=== PATIENT | female | born 1945 | race Caucasian/White ===

== ENCOUNTER 2019-01-22 06:20 | Observation (INO) ==
[2019-01-22] MEDS ORDERED: Clindamycin 900 MG/50 ML 900 MG/50 ML IV.SOLN IVPB ONE (06:54)
[2019-01-22] MEDS ORDERED: Ringers Solution, Lactated 1,000 ML IVC SCH ×2 (07:00→12:19)
[2019-01-22] MEDS ORDERED: *HR* Propofol 200 MG/20 ML VIAL IVP ONE (07:04)
[2019-01-22] MEDS ORDERED: Lidocaine -MPF 2% 2 ML VIAL ONE (07:04)
[2019-01-22] MEDS ORDERED: *HR* Midazolam HCl 2 MG/2 ML VIAL ONE (07:04)
[2019-01-22] MEDS ORDERED: *HR* Rocuronium Bromide 50 MG/5 ML VIAL ONE (07:04)
[2019-01-22] MEDS ORDERED: *HR* Succinylcholine 200 MG/10 ML VIAL IVP ONE (07:04)
[2019-01-22] MEDS ORDERED: Dexamethasone 4 MG/ML VIAL ONE (07:04)
[2019-01-22] MEDS ORDERED: Lidocaine HCL 4 ML Topical Solution (Laryng-O-Jet Kit Sterile Pak) TP ONE (07:04)
[2019-01-22] MEDS ORDERED: *HR* FentaNYL (PF) 100 MCG/2 ML VIAL ONE (07:04)
[2019-01-22] MEDS ORDERED: Ondansetron 4 MG/2 ML VIAL ONE (07:04)
[2019-01-22] MEDS ORDERED: *HR* Promethazine 25 MG/ML VIAL IVP PRN (07:17)
[2019-01-22] MEDS ORDERED: Ondansetron 4 MG/2 ML VIAL IVP ONE (07:17)
[2019-01-22] MEDS ORDERED: Scopolamine Patch 1.5 MG PATCH.TD72 TD ONE (07:17)
[2019-01-22] MEDS ORDERED: *HR* OxyCODONE Immed Rel 5 MG TABLET PO PRN (07:17)
[2019-01-22] MEDS ORDERED: *HR* Remifentanil 1 MG VIAL IVP ONE (07:20)
[2019-01-22] MEDS ORDERED: *HR* Phenylephrine 10 MG/ML VIAL ONE (07:23)
[2019-01-22] MEDS ORDERED: Bacitracin 50,000 UNIT, Polymyxin B Sulfate 500,000 UNIT, Sodium Chloride IRRigation 1,... IR ONE (07:45)
[2019-01-22] MEDS ORDERED: EPHEDrine 50 MG/ML VIAL ONE (08:14)
[2019-01-22] MEDS ORDERED: *HR* HYDROMORPHONE 2 MG/ML VIAL ONE (09:39)
[2019-01-22] MEDS: *HR* HYDROmorphone (PF) 1 MG/ML SYRINGE IVP PRN ×4 (09:52→10:34)
[2019-01-22] MEDS ORDERED: Gabapentin 300 MG CAPSULE PO ONE (10:53)
[2019-01-22] MEDS ORDERED: *HR* LORazepam 2 MG/ML VIAL IVP ONE (10:54)
[2019-01-22] MEDS ORDERED: tiZANidine 4 MG TABLET PO ONE (10:54)
[2019-01-22] MEDS ORDERED: *HR* LORazepam 2 MG/ML VIAL ONE (10:58)
[2019-01-22] MEDS ORDERED: *HR* HYDROcodone/Acet 5/325 mg TABLET PO PRN (12:19)
[2019-01-22] MEDS ORDERED: IBUPROFEN PO PRN (12:19)
[2019-01-22] MEDS ORDERED: [UNRECOGNIZED DRUG - OTHER] PO PRN (12:19)
[2019-01-22] MEDS ORDERED: Ibuprofen 400 MG TABLET PO PRN (12:19)
[2019-01-22] MEDS ORDERED: HYDROCODONE PO PRN (12:19)
[2019-01-22] MEDS ORDERED: Gabapentin 300 MG CAPSULE PO SCH (12:19)
[2019-01-22] MEDS ORDERED: Naloxone 0.4 MG/ML INJ IVP PRN (12:19)
[2019-01-22] MEDS: Clindamycin 600 MG/50 ML 600 MG/50 ML IV.SOLN IVPB SCH ×2 (16:11→23:58)
[2019-01-22] MEDS: Gabapentin 300 MG CAPSULE PO SCH (17:39)
[2019-01-22] MEDS: HYDROcodone BIT/Homatropine 5 MG TABLET PO PRN ×2 (17:39→22:39)
[2019-01-22] MEDS: tiZANidine 4 MG TABLET PO PRN (18:34)
[2019-01-22] MEDS: *HR* OxyCODONE Immed Rel 5 MG TABLET PO PRN (20:05)
[2019-01-22] MEDS: traZODone 50 MG TABLET PO SCH (20:05)
[2019-01-23] MEDS: *HR* OxyCODONE Immed Rel 5 MG TABLET PO PRN ×3 (00:03→11:10)
[2019-01-23] MEDS: HYDROcodone BIT/Homatropine 5 MG TABLET PO PRN ×4 (03:31→20:50)
[2019-01-23] MEDS: FLUoxetine 20 MG CAPSULE PO SCH ×2 (08:36→08:37)
[2019-01-23] MEDS: tiZANidine 4 MG TABLET PO PRN (08:36)
[2019-01-23] MEDS: Multivit/Ca/Min/Fe/FA 1 TAB TABLET PO SCH (08:37)
[2019-01-23] MEDS: Ascorbic Acid 500 MG TABLET PO SCH (08:37)
[2019-01-23] MEDS: Gabapentin 300 MG CAPSULE PO SCH ×2 (08:37→11:11)
[2019-01-23] MEDS ORDERED: NON-FORMULARY MEDICATION 1 EACH EACH (Ubidecarenone [Co Q-10] 100 MG) PO SCH (09:00)
[2019-01-23] MEDS ORDERED: NON-FORMULARY MEDICATION 1 EACH EACH (Turmeric Root Extract [Turmeric] 500 MG) PO SCH (09:00)
[2019-01-23] MEDS ORDERED: 0.9 % Sodium Chloride 500 ML IVC ONE (11:52)
[2019-01-23 12:22] LABS: Basophils % 0.3 %; Eosinophils % 0.1 %; Hematocrit 32.7 % (35.3-44.9); Hemoglobin 11.2 g/dL (11.5-15.4); Immature Granulocytes % 0.3 % (0-4); Lymphocytes % 25.3 %; Mean Corpuscular HGB Conc 34.3 g/dL (31.6-35.5); Mean Corpuscular Hemoglobin 31.7 pg (28.0-33.3); Mean Corpuscular Volume 92.6 fL (83.0-100.0); Mean Platelet Volume 10.6 fL (9.4-12.4); Monocytes % 8.6 %; Neutrophils # 7.7 K/mcL (1.6-8.9); Platelet Count 300 K/mcL (140-400); Red Blood Count 3.53 M/mcL (3.82-4.97); Red Cell Distribution Width 13.4 % (11.5-14.5); Segmented Neutrophils % 65.4 %
[2019-01-23 12:24] LABS: White Blood Count 11.7 K/mcL (4.3-11.1)
[2019-01-23 12:42] LABS: Albumin 3.6 g/dL (3.5-5.7); Albumin/Globulin Ratio 1.3 (1.1-2.2); Bilirubin,Total 0.5 mg/dL (0.3-1.0); Calcium 9.1 mg/dL (8.6-10.3); Globulin 2.8 g/dL (2.4-3.5); Potassium 3.5 mEq/L (3.5-5.1); Total Protein 6.4 g/dL (6.4-8.9)
[2019-01-23] MEDS ORDERED: Ringers Solution, Lactated 1,000 ML IVC ONE (14:17)
[2019-01-23] MEDS: Loratadine 10 MG TABLET PO SCH (15:02)
[2019-01-24] MEDS: HYDROcodone BIT/Homatropine 5 MG TABLET PO PRN ×4 (00:48→20:48)
[2019-01-24] MEDS: *HR* OxyCODONE Immed Rel 5 MG TABLET PO PRN ×4 (01:53→17:57)
[2019-01-24] MEDS: Ondansetron 4 MG/2 ML VIAL IVP PRN ×3 (07:18→21:07)
[2019-01-24 07:45] LABS: Basophils % 0.3 %; Eosinophils # 0.1 K/mcL (0.0-0.6); Eosinophils % 0.3 %; Hematocrit 40.1 % (35.3-44.9); Immature Granulocytes % 0.5 % (0-4); Lymphocytes # 2.7 K/mcL (0.6-4.6); Lymphocytes % 17.9 %; Mean Corpuscular HGB Conc 34.2 g/dL (31.6-35.5); Mean Corpuscular Hemoglobin 31.1 pg (28.0-33.3); Mean Corpuscular Volume 90.9 fL (83.0-100.0); Mean Platelet Volume 10.7 fL (9.4-12.4); Monocytes # 1.1 K/mcL (0.0-1.3); Monocytes % 7.3 %; Platelet Count 369 K/mcL (140-400); Red Blood Count 4.41 M/mcL (3.82-4.97); Red Cell Distribution Width 13.4 % (11.5-14.5); Segmented Neutrophils % 73.7 %; White Blood Count 14.9 K/mcL (4.3-11.1)
[2019-01-24 08:02] LABS: Hemoglobin 13.7 g/dL (11.5-15.4)
[2019-01-24 08:13] LABS: BUN/Creatinine Ratio 13 (6-26); Blood Urea Nitrogen 10 mg/dL (8-23); Calcium 9.7 mg/dL (8.6-10.3); Carbon Dioxide 27 mEq/L (23-29); Chloride 94 mEq/L (98-107); Glucose 173 mg/dL (70-105); Osmolality,Calculated 281 (280-300); Potassium 3.8 mEq/L (3.5-5.1); Sodium 134 mEq/L (136-145); eGFR For African Americans > 60 (> 60); eGFR For Non-African Americans > 60 (> 60)
[2019-01-24] MEDS: FLUoxetine 20 MG CAPSULE PO SCH ×2 (09:44→09:45)
[2019-01-24] MEDS: Loratadine 10 MG TABLET PO SCH (09:44)
[2019-01-24] MEDS: Multivit/Ca/Min/Fe/FA 1 TAB TABLET PO SCH (09:45)
[2019-01-24] MEDS: Ascorbic Acid 500 MG TABLET PO SCH (09:46)
[2019-01-24] MEDS: amLODIPine 5 MG TABLET PO SCH (13:48)
[2019-01-24] MEDS: Gabapentin 300 MG CAPSULE PO SCH ×2 (17:52→17:53)
[2019-01-24 19:22] LABS: Bacteria,Urine None Seen per hpf (None-Few); Bilirubin,Urine Negative (Negative); Blood,Urine Negative (Negative); Clarity,Urine Clear (Clear); Color,Urine Yellow (Yellow); Glucose,Urine (UA) Normal (Normal); Hyaline Casts,Urine None Seen per lpf (None-Few); Ketones,Urine 15 mg/dL (Negative); Leukocyte Esterase,Urine Negative (Negative); Nitrite,Urine Negative (Negative); Protein,Urine >=300 mg/dL (Neg-Trace); Squamous Epithelial Cell,Urine Many per lpf (None-Few); Urobilinogen,Urine Normal (Normal)
[2019-01-24] MEDS: traZODone 50 MG TABLET PO SCH (21:07)
[2019-01-25] MEDS: *HR* OxyCODONE Immed Rel 5 MG TABLET PO PRN ×5 (00:08→20:20)
[2019-01-25] MEDS: HYDROcodone BIT/Homatropine 5 MG TABLET PO PRN ×2 (02:05→22:34)
[2019-01-25] MEDS: tiZANidine 4 MG TABLET PO PRN ×2 (04:17→18:39)
[2019-01-25] MEDS ORDERED: 0.9 % Sodium Chloride 500 ML ONE (07:04)
[2019-01-25] MEDS ORDERED: 0.9 % Sodium Chloride 500 ML IVC PRN (07:07)
[2019-01-25] MEDS: Gabapentin 300 MG CAPSULE PO SCH (10:00)
[2019-01-25 10:03] LABS: Calcium 9.5 mg/dL (8.6-10.3); Potassium 4.2 mEq/L (3.5-5.1)
[2019-01-25] MEDS: Ondansetron 4 MG/2 ML VIAL IVP PRN (10:22)
[2019-01-25] MEDS: Multivit/Ca/Min/Fe/FA 1 TAB TABLET PO SCH (10:30)
[2019-01-25] MEDS: Loratadine 10 MG TABLET PO SCH (10:30)
[2019-01-25] MEDS: Ascorbic Acid 500 MG TABLET PO SCH (10:30)
[2019-01-25] MEDS: FLUoxetine 20 MG CAPSULE PO SCH ×2 (10:30)
[2019-01-25 10:38] LABS: Basophils % 0.2 %; Hemoglobin 13.7 g/dL (11.5-15.4); Immature Granulocytes % 0.4 % (0-4); Lymphocytes # 1.7 K/mcL (0.6-4.6); Lymphocytes % 13.3 %; Mean Corpuscular HGB Conc 34.3 g/dL (31.6-35.5); Mean Corpuscular Hemoglobin 31.6 pg (28.0-33.3); Mean Platelet Volume 10.6 fL (9.4-12.4); Monocytes # 1.2 K/mcL (0.0-1.3); Monocytes % 9.6 %; Neutrophils # 9.6 K/mcL (1.6-8.9); Platelet Count 369 K/mcL (140-400); Red Blood Count 4.34 M/mcL (3.82-4.97); Red Cell Distribution Width 13.8 % (11.5-14.5); Segmented Neutrophils % 76.5 %; White Blood Count 12.6 K/mcL (4.3-11.1)
[2019-01-25 10:40] LABS: Mean Corpuscular Volume 92.2 fL (83.0-100.0)
[2019-01-25 11:30] LABS: Thyroid Stimulating Hormone 2.709 mcIU/mL (0.340-5.600)
[2019-01-25 12:02] LABS: Estimated Average Glucose 123 mg/dl
[2019-01-25 16:56] LABS: Complement C3 199 mg/dL (87-200)
[2019-01-25 17:15] LABS: Protein/Creatinine Ratio,Urine 1.7 mg/mg (0.00-0.20); Sodium, Urine 21.8 mEq/L
[2019-01-25] MEDS: traZODone 50 MG TABLET PO SCH (20:20)
[2019-01-25] MEDS ORDERED: levoFLOXacin 750 MG/150 ML 750 MG/150 ML BAG IVPB SCH (23:45)
[2019-01-26] MEDS: *HR* OxyCODONE Immed Rel 5 MG TABLET PO PRN ×4 (00:18→14:54)
[2019-01-26 02:36] LABS: Hematocrit 37.9 % (35.3-44.9); Mean Corpuscular HGB Conc 34.3 g/dL (31.6-35.5); Mean Corpuscular Hemoglobin 31.5 pg (28.0-33.3); Mean Corpuscular Volume 91.8 fL (83.0-100.0); Mean Platelet Volume 10.8 fL (9.4-12.4); Platelet Count 357 K/mcL (140-400); Red Blood Count 4.13 M/mcL (3.82-4.97); Red Cell Distribution Width 13.5 % (11.5-14.5)
[2019-01-26 02:58] LABS: BUN/Creatinine Ratio 22 (6-26); Blood Urea Nitrogen 22 mg/dL (8-23); Calcium 9.7 mg/dL (8.6-10.3); Carbon Dioxide 26 mEq/L (23-29); Chloride 98 mEq/L (98-107); Glucose 141 mg/dL (70-105); Osmolality,Calculated 286 (280-300); Potassium 3.6 mEq/L (3.5-5.1); Sodium 135 mEq/L (136-145); eGFR For African Americans > 60 (> 60); eGFR For Non-African Americans 54 (> 60)
[2019-01-26] MEDS: HYDROcodone BIT/Homatropine 5 MG TABLET PO PRN (03:22)
[2019-01-26 07:17] LABS: Basophils % 0.2 %; Eosinophils # 0.1 K/mcL (0.0-0.6); Eosinophils % 1.2 %; Hemoglobin 13.6 g/dL (11.5-15.4); Immature Granulocytes % 0.4 % (0-4); Lymphocytes # 2.4 K/mcL (0.6-4.6); Lymphocytes % 23.2 %; Mean Corpuscular Hemoglobin 31.3 pg (28.0-33.3); Mean Corpuscular Volume 92.2 fL (83.0-100.0); Mean Platelet Volume 10.5 fL (9.4-12.4); Monocytes # 0.9 K/mcL (0.0-1.3); Monocytes % 8.4 %; Neutrophils # 6.9 K/mcL (1.6-8.9); Platelet Count 378 K/mcL (140-400); Red Blood Count 4.34 M/mcL (3.82-4.97); Red Cell Distribution Width 13.6 % (11.5-14.5); Segmented Neutrophils % 66.6 %; White Blood Count 10.3 K/mcL (4.3-11.1)
[2019-01-26 07:39] LABS: BUN/Creatinine Ratio 23 (6-26); Blood Urea Nitrogen 23 mg/dL (8-23); Carbon Dioxide 27 mEq/L (23-29); Chloride 96 mEq/L (98-107); Glucose 158 mg/dL (70-105); Osmolality,Calculated 293 (280-300); Potassium 3.8 mEq/L (3.5-5.1); Sodium 138 mEq/L (136-145); eGFR For African Americans > 60 (> 60); eGFR For Non-African Americans 56 (> 60)
[2019-01-26] MEDS: Loratadine 10 MG TABLET PO SCH (08:34)
[2019-01-26] MEDS: Multivit/Ca/Min/Fe/FA 1 TAB TABLET PO SCH (08:34)
[2019-01-26] MEDS: Ascorbic Acid 500 MG TABLET PO SCH (08:35)
[2019-01-26] MEDS: FLUoxetine 20 MG CAPSULE PO SCH ×2 (08:35)
[2019-01-26 16:19] VITALS: BP 163/84
[2019-01-28 11:42] LABS: ANA IgG by ELISA NONE DETECTED (None Detected)
[2019-01-28 20:56] LABS: Urine Collection Volume RANDOM mL
[2019-01-29 13:32] LABS: Alpha 2 Globulin (PEP) 0.99 g/dL (0.48-1.05); Beta Globulin (PEP) 0.87 g/dL (0.48-1.10)
[2019-01-29 13:34] LABS: IFE Reflexed NOT DONE
[2019-01-30 09:59] LABS: Metanephrine, Plasma 0.22 nmol/L (0.00-0.49)
== END 2019-01-26 17:25 | disposition home health service (06) ==
LOC: 3NENU 06:20 → SAMDAY 06:20 → 3NENU 12:18 → SUATTDRO 01-25 11:01
PROVIDERS: ADMIT Orthopaedic Surgery Orthopaedic Surgery of the Spine; ATTEND Internal Medicine